=== PATIENT | male | born 1950 | race Caucasian/White ===

== ENCOUNTER 2016-11-30 20:57 | Inpatient (IN) | payer MEDICARE, OTHER ==
[~2016-11-30] VITALS: Ht 167.6 cm; Wt 81.6 kg
[2016-11-30 21:15] VITALS: BP 124/54
[2016-11-30 21:38] LABS: MEAN CORPUSCULAR HEMOGLOBIN 32.7 PG (27.0-31.0); MEAN CORPUSCULAR HGB CONC 35.7 G/DL (32.0-36.0); MEAN CORPUSCULAR VOLUME 91 FL (80-99); MEAN PLATELET VOLUME 6.4 FL (6.5-10.1); PLATELET COUNT 207 K/UL (150-450); RED BLOOD COUNT 2.41 M/UL (4.70-6.10); RED CELL DISTRIBUTION WIDTH 11.8 % (11.6-14.8); WHITE BLOOD COUNT 9.4 K/UL (4.8-10.8)
[2016-11-30 21:40] LABS: APPEARANCE,URINE CLEAR; KETONES,URINE NEGATIVE (NEGATIVE); LEUKOCYTE ESTERASE ,URINE NEGATIVE (NEGATIVE); NITRITE,URINE NEGATIVE (NEGATIVE); PH,URINE 6.5 (4.5-8.0); PROTEIN,URINE NEGATIVE (NEGATIVE); UROBILINOGEN,URINE 4 MG/DL (0.0-1.0)
[2016-11-30 21:49] LABS: INR 0.9 (0.9-1.1); PROTHROMBIN TIME 9.5 SEC (9.30-11.50)
[2016-11-30 21:53] LABS: ANION GAP 13 (5-15); CALCIUM 9.4 mg/dL (8.6-10.2); CARBON DIOXIDE 25 mEQ/L (20-30); CHLORIDE 94 mEQ/L (98-107); CREATININE 0.5 mg/dL (0.7-1.2); GLOMERULAR FILTRATION RATE > 60 mL/min (>60); HEMOLYSIS 0; POTASSIUM 3.9 mEQ/L (3.4-4.9); SODIUM 132 mEQ/L (135-145)
[2016-11-30] MEDS ORDERED: RISPERDAL1 MG/1 ML PO (21:55)
[2016-11-30] MEDS ORDERED: LOVENOX40 MG/0.4 SUBQ (21:55)
[2016-11-30] MEDS ORDERED: NORCO 10-325 T1 EACH ORAL (21:55)
[2016-11-30] MEDS ORDERED: LIBRIUM10 MG ORAL (21:55)
[2016-11-30 22:22] LABS: BAND NEUTROPHILS % (MANUAL) 1 % (0-8); BASOPHILS % (MANUAL) 0 % (0-2); EOSINOPHILS % (MANUAL) 7 % (0-3); LYMPHOCYTES % (MANUAL) 19 % (20-45); NEUTROPHILS % (MANUAL) 67 % (45-75); PLATELET ESTIMATE ADEQUATE; TOTAL CELLS COUNTED 100
[2016-11-30 22:23] LABS: PLATELET MORPHOLOGY NORMAL
[2016-11-30 23:35] VITALS: BP 127/75
[2016-11-30 23:50] VITALS: BP 122/70
[2016-12-01] VITALS (7 sets, daily range): BP systolic 109–131; BP diastolic 60–76
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
[2016-12-01] MEDS ORDERED: NICODERM CQ1 EAC1 TD (03:09)
[2016-12-01] MEDS ORDERED: DiphenhydrAMINE 50mg/ml Inj IVP PRN (05:15)
[2016-12-01 06:58] LABS: BASOPHILS % (AUTO) 1.2 % (0.0-2.0); EOSINOPHILS % (AUTO) 2.8 % (0.0-3.0); LYMPHOCYTES % (AUTO) 13.3 % (20.0-45.0); MEAN CORPUSCULAR HEMOGLOBIN 31.5 PG (27.0-31.0); MEAN CORPUSCULAR HGB CONC 35.1 G/DL (32.0-36.0); MEAN CORPUSCULAR VOLUME 90 FL (80-99); MEAN PLATELET VOLUME 6.9 FL (6.5-10.1); MONOCYTES % (AUTO) 16.4 % (1.0-10.0); NEUTROPHILS % (AUTO) 66.3 % (45.0-75.0); PLATELET COUNT 240 K/UL (150-450); RED BLOOD COUNT 2.69 M/UL (4.70-6.10); RED CELL DISTRIBUTION WIDTH 11.8 % (11.6-14.8); WHITE BLOOD COUNT 9.1 K/UL (4.8-10.8)
[2016-12-01 07:18] LABS: ALANINE AMINOTRANSFERASE 38 U/L (3-41); ANION GAP 13 (5-15); ASPARTATE AMINO TRANSFERASE 25 U/L (5-40); CALCIUM 9.4 mg/dL (8.6-10.2); CARBON DIOXIDE 24 mEQ/L (20-30); CHLORIDE 101 mEQ/L (98-107); CREATININE 0.5 mg/dL (0.7-1.2); GLOMERULAR FILTRATION RATE > 60 mL/min (>60); HEMOLYSIS 8; POTASSIUM 4.1 mEQ/L (3.4-4.9); SODIUM 138 mEQ/L (135-145); TOTAL PROTEIN 5.8 g/dL (6.6-8.7)
--- NOTE | 2016-12-01 09:12 | History & Physical ---
History and Physical History & Physicial Seen and examined. Dict completed Flaco Saunders MD December 01, 2016 09:12
--- NOTE | 2016-12-01 09:14 | General Progress Note ---
Assessment/Plan Status: stable Assessment/Plan 1- Acute Anemia, source? 2- Alcoholism 3- Left shoulder fracture 4- Psych d/o Plan: Psych is notified HH q12 h post one unit transfusion Subjective ROS Limited/Unobtainable: Yes Allergies: Coded Allergies: PENICILLINS (Verified Allergy, Unknown, 11/30/16) Objective Last 24 Hour Vital Signs Date Time Temp Pulse Resp B/P Pulse Ox O2 Delivery O2 Flow Rate FiO2 12/01/16 08:48 98.6 74 19 122/72 97 Room Air 12/01/16 04:00 97.8 65 18 128/74 98 Room Air 12/01/16 02:45 98.1 63 17 130/76 100 Room Air 12/01/16 02:30 63 16 122/76 100 Room Air 12/01/16 02:00 98.0 63 16 122/76 100 Room Air 11/30/16 23:50 97.9 73 17 122/70 100 Room Air 11/30/16 23:35 97.7 75 25 11/30/16 23:35 97.7 75 24 127/75 98 Room Air 11/30/16 21:15 98.6 74 19 124/54 95 Nasal Cannula 2.0 11/30/16 21:04 98.8 82 22 124/54 97 Room Air Intake and Output 11/30/16 12/01/16 19:00 07:00 Intake Total 1250 ml Output Total 900 ml Balance 350 ml Intake IV Total 1000 ml Blood Product 250 ml Output Urine Total 900 ml # Voids 3 # Bowel Movements 1 Laboratory Tests 11/30/16 21:20: White Blood Count 9.4, Red Blood Count 2.41L, Hemoglobin 7.9L, Hematocrit 22.1L , Mean Corpuscular Volume 91, Mean Corpuscular Hemoglobin 32.7H, Mean Corpuscular Hemoglobin Concent 35.7, Red Cell Distribution Width 11.8, Platelet Count 207, Mean Platelet Volume 6.4L, Neutrophils (%) (Auto) , Lymphocytes (%) ( Auto) , Monocytes (%) (Auto) , Eosinophils (%) (Auto) , Basophils (%) (Auto) , Differential Total Cells Counted 100, Neutrophils % (Manual) 67, Lymphocytes % ( Manual) 19L, Monocytes % (Manual) 6, Eosinophils % (Manual) 7H, Basophils % ( Manual) 0, Band Neutrophils 1, Platelet Estimate Adequate, Platelet Morphology Normal, Prothrombin Time 9.5, Prothromb Time International Ratio 0.9, Activated Partial Thromboplast Time 27, Urine Color Yellow, Urine Appearance Clear, Urine pH 6.5, Urine Specific [place] 1.010, Urine Protein Negative, Urine Glucose (UA ) Negative, Urine Ketones Negative, Urine Occult Blood Negative, Urine Nitrite Negative, Urine Bilirubin Negative, Urine Urobilinogen 4H, Urine Leukocyte Esterase Negative, Sodium Level 132L, Potassium Level 3.9, Chloride Level 94L, Carbon Dioxide Level 25, Anion Gap 13, Blood Urea Nitrogen 13, Creatinine 0.5L, Estimat Glomerular Filtration Rate > 60, Glucose Level 133H, Calcium Level 9.4 12/01/16 06:25: White Blood Count 9.1, Red Blood Count 2.69L, Hemoglobin 8.5L, Hematocrit 24.1L , Mean Corpuscular Volume 90, Mean Corpuscular Hemoglobin 31.5H, Mean Corpuscular Hemoglobin Concent 35.1, Red Cell Distribution Width 11.8, Platelet Count 240, Mean Platelet Volume 6.9, Neutrophils (%) (Auto) 66.3, Lymphocytes (% ) (Auto) 13.3L, Monocytes (%) (Auto) 16.4H, Eosinophils (%) (Auto) 2.8, Basophils (%) (Auto) 1.2, Sodium Level 138, Potassium Level 4.1, Chloride Level 101, Carbon Dioxide Level 24, Anion Gap 13, Blood Urea Nitrogen 10, Creatinine 0.5L, Estimat Glomerular Filtration Rate > 60, Glucose Level 120H, Calcium Level 9.4, Total Bilirubin 0.8, Aspartate Amino Transf (AST/SGOT) 25, Alanine Aminotransferase (ALT/SGPT) 38, Alkaline Phosphatase 72, Total Protein 5.8L, Albumin 3.0L, Globulin 2.8, Albumin/Globulin Ratio 1.0 Height (Feet): 5 Height (Inches): 6.00 Weight (Pounds): 180 General Appearance: no apparent distress EENT: PERRL/EOMI Neck: supple Cardiovascular: normal rate Respiratory/Chest: lungs clear Abdomen: soft Extremities: other - upper extremities tremor Neurologic: disoriented - disorganized thinking process Flaco Saunders MD December 01, 2016 09:14
[2016-12-01] MEDS: Enoxaparin 40mg Inj SUBQ SCH (10:44)
[2016-12-01] MEDS: chlordiazePOXIDE 5mg Cap ORAL SCH ×3 (11:16→17:54)
--- NOTE | 2016-12-01 14:59 | Neurology Progress Note ---
Interim History Interim History ROS Limited/Unobtainable: Yes Objective Physical Exam Last Vital Signs Date Time Temp Pulse Resp B/P Pulse Ox O2 Delivery O2 Flow Rate FiO2 12/01/16 12:51 97.9 75 20 109/60 97 Room Air 11/30/16 21:15 2.0 Laboratory Tests Test 11/30/16 21:20 12/01/16 06:25 White Blood Count 9.4 K/UL (4.8-10.8) 9.1 K/UL (4.8-10.8) Red Blood Count 2.41 M/UL (4.70-6.10) L 2.69 M/UL (4.70-6.10) L Hemoglobin 7.9 G/DL (14.2-18.0) L 8.5 G/DL (14.2-18.0) L Hematocrit 22.1 % (42.0-52.0) L 24.1 % (42.0-52.0) L Mean Corpuscular Volume 91 FL (80-99) 90 FL (80-99) Mean Corpuscular Hemoglobin 32.7 PG (27.0-31.0) H 31.5 PG (27.0-31.0) H Mean Corpuscular Hemoglobin Concent 35.7 G/DL (32.0-36.0) 35.1 G/DL (32.0-36.0) Red Cell Distribution Width 11.8 % (11.6-14.8) 11.8 % (11.6-14.8) Platelet Count 207 K/UL (150-450) 240 K/UL (150-450) Mean Platelet Volume 6.4 FL (6.5-10.1) L 6.9 FL (6.5-10.1) Neutrophils (%) (Auto) % (45.0-75.0) 66.3 % (45.0-75.0) Lymphocytes (%) (Auto) % (20.0-45.0) 13.3 % (20.0-45.0) L Monocytes (%) (Auto) % (1.0-10.0) 16.4 % (1.0-10.0) H Eosinophils (%) (Auto) % (0.0-3.0) 2.8 % (0.0-3.0) Basophils (%) (Auto) % (0.0-2.0) 1.2 % (0.0-2.0) Differential Total Cells Counted 100 Neutrophils % (Manual) 67 % (45-75) Lymphocytes % (Manual) 19 % (20-45) L Monocytes % (Manual) 6 % (1-10) Eosinophils % (Manual) 7 % (0-3) H Basophils % (Manual) 0 % (0-2) Band Neutrophils 1 % (0-8) Platelet Estimate Adequate Platelet Morphology Normal Prothrombin Time 9.5 SEC (9.30-11.50) Prothromb Time International Ratio 0.9 (0.9-1.1) Activated Partial Thromboplast Time 27 SEC (23-33) Urine Color Yellow Urine Appearance Clear Urine pH 6.5 (4.5-8.0) Urine Specific [place] 1.010 (1.005-1.035) Urine Protein Negative (NEGATIVE) Urine Glucose (UA) Negative (NEGATIVE) Urine Ketones Negative (NEGATIVE) Urine Occult Blood Negative (NEGATIVE) Urine Nitrite Negative (NEGATIVE) Urine Bilirubin Negative (NEGATIVE) Urine Urobilinogen 4 MG/DL (0.0-1.0) H Urine Leukocyte Esterase Negative (NEGATIVE) Sodium Level 132 mEQ/L (135-145) L 138 mEQ/L (135-145) Potassium Level 3.9 mEQ/L (3.4-4.9) 4.1 mEQ/L (3.4-4.9) Chloride Level 94 mEQ/L (98-107) L 101 mEQ/L (98-107) Carbon Dioxide Level 25 mEQ/L (20-30) 24 mEQ/L (20-30) Anion Gap 13 (5-15) 13 (5-15) Blood Urea Nitrogen 13 mg/dL (7-23) 10 mg/dL (7-23) Creatinine 0.5 mg/dL (0.7-1.2) L 0.5 mg/dL (0.7-1.2) L Estimat Glomerular Filtration Rate > 60 mL/min (>60) > 60 mL/min (>60) Glucose Level 133 mg/dL (74-106) H 120 mg/dL (74-106) H Calcium Level 9.4 mg/dL (8.6-10.2) 9.4 mg/dL (8.6-10.2) Total Bilirubin 0.8 mg/dL (0.0-1.2) Aspartate Amino Transf (AST/SGOT) 25 U/L (5-40) Alanine Aminotransferase (ALT/SGPT) 38 U/L (3-41) Alkaline Phosphatase 72 U/L (40-129) Total Protein 5.8 g/dL (6.6-8.7) L Albumin 3.0 g/dL (3.5-5.2) L Globulin 2.8 g/dL Albumin/Globulin Ratio 1.0 (1.0-2.7) Impression/Recommendations Problems: (1) Parkinsonian tremor (2) s/p old craniotomy defect. (3) chronic psychiatric disease with cognitive loss ,confusion (4) Anemia Status: stable Recommendations #[id number] JT LONG December 01, 2016 14:59
[2016-12-01] MEDS: BuPROPion SR 100mg tab ORAL SCH (15:54)
[2016-12-01] MEDS: Norco 10mg/325mg tab ORAL PRN (15:54)
[2016-12-01] MEDS: Magnesium Oxide 400mg tab ORAL SCH (15:54)
[2016-12-01] MEDS: Thiamine 100mg tab ORAL SCH (15:54)
--- NOTE | 2016-12-01 20:29 | History and Physical Report ---
DATE OF ADMISSION: 11/30/2016 SOURCE OF INFORMATION: The patient and EMR. HISTORY OF PRESENT ILLNESS: The patient is a pleasant 66-year-old white male. He is suffering from multiple medical problems including but not limited to anemia. There was a reported incidental hemoglobin check and found 7.4. I requested the patient to be transferred to the hospital. No gross bleeding is reported. No vomiting. No chest pain. No shortness of breath. PAST MEDICAL HISTORY: Alcoholism, anemia, diabetes/prediabetes, hyponatremia, Parkinson, and psychiatric disorder. PAST SURGICAL HISTORY: None. MEDICATIONS: Outpatient medications include Sabina, chlordiazepoxide, nicotine, risperidone, and Lovenox. ALLERGIES: Penicillin. SOCIAL HISTORY: The patient is positive for prior history of heavy alcohol abuse. The patient is currently a resident of [facility], unknown history of smoking. FAMILY HISTORY: Reviewed and noncontributory. REVIEW OF SYSTEMS: A 10-point elements of review of systems reviewed with the patient. Pertinent positives and negatives are mentioned as above. PHYSICAL EXAMINATION: VITAL SIGNS: Blood pressure 120/50, temperature 98.7 degrees, pulse oximetry 99% on room air, and pulse rate 80-90. HEAD AND NECK: Atraumatic and normocephalic. CHEST: Clear to auscultation. HEART: S1 and S2. Regular rate and rhythm. ABDOMEN: Soft. Limited evaluation for organomegaly. NEUROLOGIC: The patient is awake. Positive for disorganized thinking process. MUSCULOSKELETAL: Positive for tremors. No gross lateralized motor deficit. LABORATORY AND DIAGNOSTIC DATA: Labs dated 11/30/2016 shows WBC 9.4, hemoglobin 7.9, and platelets 207,000. Sodium 132, potassium 3.9, BUN 13, and creatinine 0.5. ALT and AST are normal. Urine test is normal. ASSESSMENT AND PLAN: 1. Acute anemia. 2. History of alcoholism. 3. Parkinson. 4. Psychiatric disorder. 5. History of left shoulder and left leg fracture. Continue with pain management. 6. Gastrointestinal and deep vein thrombosis prophylaxis. We will hold on the heparin subcutaneous or aspirin. PLAN OF CARE: We will proceed with monitoring hemoglobin and hematocrit q.12 hours status post we will proceed with one unit packed red blood cell transfusion. We will consult psychiatrist. Benyammabonnie Saunders M.D. DR: Jhony JOB#: [id number] CC: ESTHER
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
[2016-12-02] VITALS: BP 130/69
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
[2016-12-02 04:00] VITALS: BP 130/70
[2016-12-02] MEDS: Norco 10mg/325mg tab ORAL PRN ×2 (04:59→13:40)
[2016-12-02 07:48] LABS: BASOPHILS % (AUTO) 0.8 % (0.0-2.0); EOSINOPHILS % (AUTO) 2.1 % (0.0-3.0); LYMPHOCYTES % (AUTO) 13.6 % (20.0-45.0); MEAN CORPUSCULAR HEMOGLOBIN 30.8 PG (27.0-31.0); MEAN CORPUSCULAR HGB CONC 34.3 G/DL (32.0-36.0); MEAN CORPUSCULAR VOLUME 90 FL (80-99); MEAN PLATELET VOLUME 6.2 FL (6.5-10.1); MONOCYTES % (AUTO) 12.5 % (1.0-10.0); NEUTROPHILS % (AUTO) 71.1 % (45.0-75.0); PLATELET COUNT 313 K/UL (150-450); RED BLOOD COUNT 2.89 M/UL (4.70-6.10); RED CELL DISTRIBUTION WIDTH 12.1 % (11.6-14.8); WHITE BLOOD COUNT 10.8 K/UL (4.8-10.8)
[2016-12-02] MEDS: Magnesium Oxide 400mg tab ORAL SCH (08:26)
[2016-12-02] MEDS: BuPROPion SR 100mg tab ORAL SCH (08:26)
[2016-12-02] MEDS: chlordiazePOXIDE 5mg Cap ORAL SCH ×3 (08:26→18:43)
[2016-12-02] MEDS: Thiamine 100mg tab ORAL SCH (08:26)
[2016-12-02 08:27] LABS: ALANINE AMINOTRANSFERASE 32 U/L (3-41); ANION GAP 15 (5-15); ASPARTATE AMINO TRANSFERASE 16 U/L (5-40); CALCIUM 9.7 mg/dL (8.6-10.2); CARBON DIOXIDE 24 mEQ/L (20-30); CHLORIDE 96 mEQ/L (98-107); CREATININE 0.5 mg/dL (0.7-1.2); GLOMERULAR FILTRATION RATE > 60 mL/min (>60); HEMOLYSIS 2; POTASSIUM 4.1 mEQ/L (3.4-4.9); SODIUM 135 mEQ/L (135-145); TOTAL PROTEIN 6.3 g/dL (6.6-8.7)
[2016-12-02] MEDS: Enoxaparin 40mg Inj SUBQ SCH (08:29)
[2016-12-02 08:53] VITALS: BP 110/67
[2016-12-02 12:00] VITALS: BP 100/62
[2016-12-02 14:15] LABS: TROPONIN I < 0.30 ng/mL (<=0.30)
--- NOTE | 2016-12-02 14:33 | Internal Med Progress Note ---
Subjective Date of Service: December 02, 2016 Physician Name SavitaDick Attending Physician Flaco Saunders MD Current Medications Medications (Trade) Dose Ordered Sig/Wilner Route PRN Reason Start Time Stop Time Status Last Admin Dose Admin Acetaminophen (Tylenol) 650 mg Q4H PRN ORAL Mild Pain/Temp > 100.5 12/01/16 05:15 12/31/16 05:14 Acetaminophen/ Hydrocodone Bitart ([place] 10/325) 1 ea Q6H PRN ORAL Pain Scale (6-10) 12/01/16 05:15 12/08/16 05:14 12/02/16 13:40 Bupropion HCl (Wellbutrin SR) 100 mg DAILY ORAL 12/01/16 16:00 12/31/16 15:59 12/02/16 08:26 Chlordiazepoxide (Librium) 10 mg TID ORAL 12/01/16 09:00 12/08/16 08:59 12/02/16 13:37 Diphenhydramine HCl (Benadryl) 25 mg Q6H PRN IVP Itching 12/01/16 05:15 12/31/16 05:14 Enoxaparin Sodium (Lovenox) 40 mg DAILY SUBQ 12/01/16 09:00 12/31/16 08:59 12/02/16 08:29 Magnesium Oxide (Mag-Ox 400mg) 400 mg DAILY ORAL 12/01/16 16:00 12/31/16 15:59 12/02/16 08:26 Nicotine (Nicoderm) 1 patch DAILY TDERMAL 12/01/16 09:00 12/31/16 08:59 12/02/16 08:27 Ondansetron HCl (Zofran) 4 mg Q6H PRN IVP Nausea & Vomiting 12/01/16 05:15 12/31/16 05:14 Risperidone (RisperDAL) 2 mg BEDTIME ORAL 12/02/16 21:00 01/01/17 20:59 Thiamine HCl (Vitamin B1) 100 mg DAILY ORAL 12/01/16 16:00 12/31/16 15:59 12/02/16 08:26 Allergies: Coded Allergies: PENICILLINS (Verified Allergy, Unknown, 11/30/16) ROS Limited/Unobtainable: Yes Subjective 66 YO M admitted with severe anemia. Cover for Int Med-Dr Saunders. Objective Last Vital Signs Date Time Temp Pulse Resp B/P Pulse Ox O2 Delivery O2 Flow Rate FiO2 12/02/16 12:00 97.7 83 20 100/62 98 Room Air 11/30/16 21:15 2.0 Laboratory Tests Test 12/02/16 06:50 12/02/16 13:46 White Blood Count 10.8 K/UL (4.8-10.8) Red Blood Count 2.89 M/UL (4.70-6.10) L Hemoglobin 8.9 G/DL (14.2-18.0) L Hematocrit 25.9 % (42.0-52.0) L Mean Corpuscular Volume 90 FL (80-99) Mean Corpuscular Hemoglobin 30.8 PG (27.0-31.0) Mean Corpuscular Hemoglobin Concent 34.3 G/DL (32.0-36.0) Red Cell Distribution Width 12.1 % (11.6-14.8) Platelet Count 313 K/UL (150-450) Mean Platelet Volume 6.2 FL (6.5-10.1) L Neutrophils (%) (Auto) 71.1 % (45.0-75.0) Lymphocytes (%) (Auto) 13.6 % (20.0-45.0) L Monocytes (%) (Auto) 12.5 % (1.0-10.0) H Eosinophils (%) (Auto) 2.1 % (0.0-3.0) Basophils (%) (Auto) 0.8 % (0.0-2.0) Sodium Level 135 mEQ/L (135-145) Potassium Level 4.1 mEQ/L (3.4-4.9) Chloride Level 96 mEQ/L (98-107) L Carbon Dioxide Level 24 mEQ/L (20-30) Anion Gap 15 (5-15) Blood Urea Nitrogen 10 mg/dL (7-23) Creatinine 0.5 mg/dL (0.7-1.2) L Estimat Glomerular Filtration Rate > 60 mL/min (>60) Glucose Level 111 mg/dL (74-106) H Calcium Level 9.7 mg/dL (8.6-10.2) Total Bilirubin 0.8 mg/dL (0.0-1.2) Aspartate Amino Transf (AST/SGOT) 16 U/L (5-40) Alanine Aminotransferase (ALT/SGPT) 32 U/L (3-41) Alkaline Phosphatase 87 U/L (40-129) Total Protein 6.3 g/dL (6.6-8.7) L Albumin 3.2 g/dL (3.5-5.2) L Globulin 3.1 g/dL Albumin/Globulin Ratio 1.0 (1.0-2.7) Creatine Kinase MB Pending Troponin I < 0.30 ng/mL (<=0.30) Intake and Output 12/01/16 12/02/16 19:00 07:00 Intake Total 200 ml Balance 200 ml Intake Oral 200 ml # Voids 3 # Bowel Movements 4 Objective General: alert, cooperative, no distress, appears stated age Head: normocephalic, without obvious abnormality, atraumatic Eyes: conjunctivae/corneas clear. PERRL, EOM's intact Throat: lips, mucosa, and tongue normal. MMM Neck: supple, symmetrical, trachea midline, and no JVD Lungs: clear to auscultation bilaterally Heart: regular rate and rhythm, S1, S2 normal, no murmur, click, rub or gallop Abdomen: soft, non-tender, non-distended, bowel sounds normal; no masses or organomegaly Extremities: extremities normal, atraumatic, no cyanosis or edema Pulses: 2+ and symmetric Skin: skin color, texture, turgor normal; no rashes or lesions Neurologic: grossly normal, no focal deficits Assessment/Plan Problem List: (1) Alcohol dependence Assessment & Plan: Cont librium. (2) Hyponatremia (3) Parkinsonian tremor (4) Psychoses Assessment & Plan: Cont lwelbutrin and risperdal. See psych note. (5) Severe anemia Assessment & Plan: S/P transfusion 1 unit PRBC on 11/30/16. Status: progressing DICK HERRERA December 02, 2016 14:33
[2016-12-02 16:37] VITALS: BP 115/64
[2016-12-02 19:00] LABS: TROPONIN I < 0.30 ng/mL (<=0.30)
[2016-12-02 20:00] VITALS: BP 113/69
[2016-12-03] VITALS: BP 128/87
[2016-12-03 01:13] LABS: BASOPHILS % (AUTO) 0.7 % (0.0-2.0); EOSINOPHILS % (AUTO) 2.5 % (0.0-3.0); LYMPHOCYTES % (AUTO) 18.4 % (20.0-45.0); MEAN CORPUSCULAR HGB CONC 34.4 G/DL (32.0-36.0); MEAN CORPUSCULAR VOLUME 90 FL (80-99); MEAN PLATELET VOLUME 6.2 FL (6.5-10.1); MONOCYTES % (AUTO) 8.6 % (1.0-10.0); NEUTROPHILS % (AUTO) 69.8 % (45.0-75.0); PLATELET COUNT 361 K/UL (150-450); RED BLOOD COUNT 3.12 M/UL (4.70-6.10); RED CELL DISTRIBUTION WIDTH 12.3 % (11.6-14.8); WHITE BLOOD COUNT 12.3 K/UL (4.8-10.8)
[2016-12-03 01:29] LABS: ALANINE AMINOTRANSFERASE 31 U/L (3-41); ANION GAP 14 (5-15); ASPARTATE AMINO TRANSFERASE 16 U/L (5-40); CALCIUM 9.6 mg/dL (8.6-10.2); CARBON DIOXIDE 25 mEQ/L (20-30); CHLORIDE 95 mEQ/L (98-107); CREATININE 0.5 mg/dL (0.7-1.2); GLOMERULAR FILTRATION RATE > 60 mL/min (>60); HEMOLYSIS 1; POTASSIUM 4.4 mEQ/L (3.4-4.9); SODIUM 134 mEQ/L (135-145); TOTAL PROTEIN 6.5 g/dL (6.6-8.7)
[2016-12-03 01:53] LABS: TROPONIN I < 0.30 ng/mL (<=0.30)
[2016-12-03 04:00] VITALS: BP 116/65
[2016-12-03 08:00] VITALS: BP 100/61
[2016-12-03] MEDS: chlordiazePOXIDE 5mg Cap ORAL SCH ×2 (08:01→13:31)
[2016-12-03] MEDS: Magnesium Oxide 400mg tab ORAL SCH (08:01)
[2016-12-03] MEDS: Enoxaparin 40mg Inj SUBQ SCH (08:02)
[2016-12-03] MEDS: Thiamine 100mg tab ORAL SCH (08:02)
[2016-12-03] MEDS: BuPROPion SR 100mg tab ORAL SCH (08:02)
[2016-12-03] MEDS: Norco 10mg/325mg tab ORAL PRN (08:45)
[2016-12-03 10:33] LABS: OTHERS PATHOLOGIST COMMENT
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
[2016-12-03 12:00] VITALS: BP 115/64
--- NOTE | 2016-12-04 00:29 | Progress Note ---
SUBJECTIVE: The patient is calm. No behavior issues. Compliant with medications. He is a poor historian. Mental status has not improved. There has not been any behavior issues. Medically, he is being cleared. MENTAL STATUS EXAMINATION: The patient is alert and oriented times self and place. Mood is neutral. Affect is flat. Congruent with mood. Thought process is concrete. Thought content, no suicidal or homicidal ideation. ASSESSMENT: Stable. PLAN: The patient will be continued on current medications. No medication changes. Jh Schulte M.D. DR: NONA JOB#: [id number] CC:
--- NOTE | 2016-12-04 09:55 | Discharge Summary ---
Discharge Summary Hospital Course Date of Admission November 30, 2016 at 22:42 Date of Discharge December 03, 2016 at 15:45 Admitting Diagnosis anemia LASHAUN Nix is a 66 year old male who was admitted on November 30, 2016 at 22:42 for Anemia Hospital Course dc summary #[id number] Discharge Medications Continued Medications: Chlordiazepoxide Hcl* (Librium*) 10 Mg Capsule 50 MG ORAL THREE TIMES A DAY, #15 CAP 0 Refills Hydrocodone Bit/Acetaminophen 10-325* ([place] 10-325*) 1 Each Tablet 1 TAB ORAL Q6H PRN for For Pain, #10 TAB 0 Refills PRN PAIN Nicotine 14MG Patch* (Nicoderm Cq 14MG*) 1 Each Patch.td24 1 EACH TD DAILY, EA Risperidone (Risperdal) 1 Mg/1 Ml Solution 1 MG PO BID Discontinued Medications: Enoxaparin (Lovenox) 40 Mg/0.4 Ml Syringe 40 MG SUBQ DAILY, MG Discharge Condition Upon Discharge: stable Discharge Disposition Patient was discharged to [facility] (04) Discharge Diagnoses: Discharge Instructions Discharge Instructions Special Instructions I have been assigned to complete a D/C Summary on this account. I was not involved in the patient management Betzy Khanna NP ([place]te[place]) December 04, 2016 09:55
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
== END 2016-12-03 15:45 | DRG 811 ==
LOC: EDBD 20:57 → EMR 21:13 → 3E 22:42 → EDBEDREQ 23:17 → 3E 12-01 03:12
PROC: 30233N1 Transfusion of Nonautologous Red Blood Cells into Peripheral Vein, Percutaneous Approach (ICD-10-PCS; principal; 2016-11-30)
DX: D64.9 Anemia, unspecified (principal); G93.40 Encephalopathy, unspecified; G21.19 Other drug induced secondary parkinsonism; F10.20 Alcohol dependence, uncomplicated; F99 Mental disorder, not otherwise specified; Z88.0 Allergy status to penicillin; S42.92XD Fracture of left shoulder girdle, part unspecified, subsequent encounter for fracture with routine healing; S82.92XD Unspecified fracture of left lower leg, subsequent encounter for closed fracture with routine healing; V89.2XXD Person injured in unspecified motor-vehicle accident, traffic, subsequent encounter
CPT/HCPCS: 36415; 80048; 80053; 81003; 82270; 82553; 84484; 85007; 85025; 85610; 85730; 86850; 86900; 86901; 86920; 87081

== ENCOUNTER 2016-12-06 20:09 | Emergency (ER) | payer MEDICARE, OTHER ==
[~2016-12-06] VITALS: Ht 180.3 cm; Wt 55.8 kg
[~2016-12-06 20:09] MED LIST: LIBRIUM10 MG ORAL; LOVENOX40 MG/0.4 SUBQ; NICODERM CQ1 EAC1 TD; NORCO 10-325 T1 EACH ORAL; RISPERDAL1 MG/1 ML PO
[2016-12-06 20:10] VITALS: BP 105/67
[2016-12-06] MEDS ORDERED: NORCO 5-325 TA1 EACH ORAL (22:02)
[2016-12-06 22:10] VITALS: BP 108/71
[2016-12-06 23:39] VITALS: BP 119/65
[2016-12-06 23:41] VITALS: BP 119/65
--- NOTE | 2016-12-07 09:46 | Diagnostic Imaging Report ---
Indication: Acute left shoulder fracture Technique: Continuous helical transaxial imaging of the left shoulder was obtained. Coronal and Sagittal 2-D reformats were also obtained. Study obtained in a Siemens sensation [address] Total Dose length Product (DLP): [address] Dose Index Volume (CTDIvol): 14 mGy Comparison: None Findings: There is a comminuted moderately impacted fracture of the surgical neck of the left humerus. Fracture lines extend into the greater tuberosity and the lesser tuberosity of the humerus. The bones are osteopenic. The visualized acromion, scapula and clavicle appear intact. Impression: Acute, comminuted fracture of the surgical neck of the left humerus as described above. The CT scanner at [facility] is accredited by the [employer] and the scans are performed using dose optimization techniques as appropriate to a performed exam including Automatic Exposure control.
--- NOTE | 2016-12-07 12:05 | Diagnostic Imaging Report ---
Indication: Pain Findings: 3 views of the left shoulder were obtained. There is an acute fracture of the left humeral neck. The fracture involves the greater tuberosity. There is impaction. Bones are osteopenic. Impression: Acute humeral neck fracture
--- NOTE | 2016-12-07 12:06 | Diagnostic Imaging Report ---
Indication: Pain Findings: 2 views of the left humerus were obtained. There is a fracture of the humeral neck. Bones are osteopenic. The humeral shaft and distal part of the humerus appear unremarkable. Impression: Acute fracture of the humeral neck
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
== END 2016-12-06 23:47 ==
LOC: EDBD 20:09 → EMR 20:23
DX: S42.202A Unspecified fracture of upper end of left humerus, initial encounter for closed fracture (principal); S82.402A Unspecified fracture of shaft of left fibula, initial encounter for closed fracture; W19.XXXA Unspecified fall, initial encounter; Y93.9 Activity, unspecified; Y92.129 Unspecified place in nursing home as the place of occurrence of the external cause; Y99.9 Unspecified external cause status; Z88.0 Allergy status to penicillin
CPT/HCPCS: 29240; 29505; 99283